=== PATIENT | male | born 1975 | race Caucasian/White ===

== ENCOUNTER 2018-02-26 08:22 | Day surgery (SDC) | payer OTHER | END 2018-02-26 15:06 | disposition home or self-care (01) | LOC: AMB-ENDOS 08:22 | DX: D12.8 Benign neoplasm of rectum (principal) ==

== ENCOUNTER 2018-12-15 11:45 | Inpatient (IN) | payer OTHER ==
[~2018-12-15] VITALS: Ht 160 cm; Wt 65.3 kg
[2018-12-26] MEDS ORDERED: TYLOPHEN500 MG PO (10:43)
[2018-12-26] MEDS ORDERED: OMEPRAZOLE20 MG PO (10:44)
[2018-12-26] MEDS ORDERED: INTESTINEX680 M1 PO (10:44)
== END 2018-12-26 10:56 | disposition home or self-care (01) | DRG 330 ==
LOC: O/R 11:45 → RECOVERY 12-21 07:00 → O/R 12-21 10:03 → SURH 12-21 10:03 → RECOVERY 12-21 11:45 → SURH 12-21 20:09
PROVIDERS: ADMIT Colon & Rectal Surgery
PROC: 07TD4ZZ Resection of Aortic Lymphatic, Percutaneous Endoscopic Approach (ICD-10-PCS; 2018-12-21)
PROC: 0DJD8ZZ Inspection of Lower Intestinal Tract, Via Natural or Artificial Opening Endoscopic (ICD-10-PCS; 2018-12-21)
PROC: 0DTN4ZZ Resection of Sigmoid Colon, Percutaneous Endoscopic Approach (ICD-10-PCS; principal; 2018-12-21 07:00)
DX: D12.8 Benign neoplasm of rectum (principal); K92.1 Melena; K63.89 Other specified diseases of intestine; R59.0 Localized enlarged lymph nodes; K63.5 Polyp of colon; D72.828 Other elevated white blood cell count

== ENCOUNTER 2020-01-20 06:00 | Day surgery (SDC) | payer OTHER ==
[~2020-01-20 06:00] MED LIST: INTESTINEX680 M1 PO; OMEPRAZOLE20 MG PO; TYLOPHEN500 MG PO
== END 2020-01-20 11:06 | disposition home or self-care (01) ==
LOC: AMB-ENDOS 06:00
PROVIDERS: ATTEND Colon & Rectal Surgery
DX: K62.89 Other specified diseases of anus and rectum (principal); K64.1 Second degree hemorrhoids